=== PATIENT | female | born 2000 | race Caucasian/White ===

== ENCOUNTER 2025-07-05 15:28 | Emergency (ER) | payer OTHER ==
[~2025-07-05] VITALS: Ht 149.9 cm; Wt 61.0 kg
[2025-07-05] MEDS ORDERED: ZOLO50TA PO (15:37)
[2025-07-05] MEDS ORDERED: MULTTAB20 PO (15:37)
[2025-07-05 16:10] LABS: BASO # 0.0 10^3/uL (0.0-0.2); BASO % 0.5 % (0.0-1.0); EOS # 0.1 10^3/uL (0.0-0.5); EOS % 1.8 % (0.0-3.0); LYMPH # 1.7 10^3/uL (1.5-5.0); LYMPH % 21.6 % (24.0-44.0); MONO # 0.5 10^3/uL (0.0-0.8); MONO % 5.9 % (2.0-8.0); NEUTROPHILS # 5.4 10^3/uL (1.5-8.5); NEUTROPHILS % 70.1 % (36.0-66.0); PLATELET COUNT, AUTOMATED 196 10^3/uL (150-450)
[2025-07-05 16:17] LABS: KETONE, URINE AUTO RFX NEGATIVE (NEGATIVE); MUCUS, URINE RFX SMALL (NEGATIVE); NITRITE, URINE AUTO RFX NEGATIVE (NEGATIVE); RBC, URINE AUTO RFX 11 /HPF (0-3); SQUAM EPITHELIAL CELL UR AURFX 2 /HPF (0-6); WBC, URINE AUTO RFX 5 /HPF (0-3)
[2025-07-05 16:18] LABS: LEUKOCYTE ESTERASE UR AUTO RFX TRACE (NEGATIVE)
[2025-07-05 16:42] LABS: CALCIUM LEVEL 9.8 MG/DL (8.5-10.1); CARBON DIOXIDE LEVEL 26 MMOL/L (20-31); CHLORIDE LEVEL 105 MMOL/L (98-107); CREATININE FOR GFR 0.61 MG/DL (0.55-1.30); GLOMERULAR FILTRATION RATE > 90.0 (>60); POTASSIUM SERUM 3.7 MMOL/L (3.5-5.1); SODIUM LEVEL 142 MMOL/L (136-145)
[2025-07-05 17:09] LABS: HCG, SERUM QUANTITATIVE 6527.8 MIU/ML (<4.2)
[2025-07-05 19:12] VITALS: BP 118/74; O2SAT 100
[2025-07-05 19:26] VITALS: TEMP 98.8
== END 2025-07-05 19:44 | disposition home or self-care (01) ==
LOC: M ED 15:28
DX: O20.0 Threatened abortion (principal); O20.8 Other hemorrhage in early pregnancy; F41.9 Anxiety disorder, unspecified; F32.A Depression, unspecified; Z3A.01 Less than 8 weeks gestation of pregnancy; Z79.899 Other long term (current) drug therapy

== ENCOUNTER → 2025-07-07 | Outpatient (CLI) | payer OTHER ==
[~2025-07-07] MED LIST: MULTTAB20 PO; ZOLO50TA PO
== END ==
LOC: M LAB 08:29
PROVIDERS: ATTEND Internal Medicine
DX: O46.90 Antepartum hemorrhage, unspecified, unspecified trimester (principal)